=== PATIENT | female | born 1970 | race Caucasian/White ===

== ENCOUNTER 2018-05-06 12:18 | Emergency (ER) | payer SELFPAY ==
[~2018-05-06] VITALS: Ht 157.5 cm; Wt 97.5 kg
[~2018-05-06 12:18] MED LIST: HYDR30CR61 TP; METR500T PO; VALA10005 PO; VENL150C PO
--- NOTE | 2018-05-06 12:40 | PHYS DOC ---
Past Medical History Past Medical History: Arthritis, Asthma, Depression, Other Additional Past Medical Histor: RLS Past Surgical History: No Surgical History Alcohol Use: None Drug Use: None Adult General Chief Complaint Chief Complaint: INSECT BITE HPI HPI Patient is a 47 year old female who presents with bee stings. The patient does not have a known history of anaphylaxis to bee stings but she does have asthma. The patient reports that she was cutting some bushes and she estimates that at least 50 bees stung her. She came to the emergency department immediately. She does not complain wheezing or shortness of breath. She does complain of diffuse burning of the skin and some flushing of the face. Review of Systems Review of Systems Constitutional: Denies fever Eyes: Denies change in visual acuity HENT: Denies nasal congestion or sore throat Respiratory: Denies cough or shortness of breath Cardiovascular: No additional information GI: Denies abdominal pain, nausea, vomiting : Denies dysuria Musculoskeletal: Denies back pain Integument: Denies rash or skin lesions Neurologic: Denies headache Endocrine: Denies polyuria All other systems were reviewed and found to be within normal limits, except as documented in this note. Current Medications Current Medications Current Medications Medications (Trade) Dose Ordered Sig/Selam Start Time Stop Time Status Last Admin Dose Admin Diphenhydramine HCl (Benadryl) 25 mg 1X ONCE 05/06/18 12:45 05/06/18 12:46 DC 05/06/18 12:47 25 MG Methylprednisolone Sodium Succinate (SOLU-Medrol 125MG VIAL) 125 mg 1X ONCE 05/06/18 12:45 05/06/18 12:46 DC 05/06/18 12:46 125 MG Sodium Chloride 1,000 ml @ 1,000 mls/hr 1X ONCE 05/06/18 12:45 05/06/18 13:44 DC 05/06/18 12:47 1,000 MLS/HR Allergies Allergies Allergies Coded Allergies Type Severity Reaction Last Updated Verified Sulfa (Sulfonamide Antibiotics) Allergy Intermediate Hives 01/14/14 Yes Physical Exam Physical Exam Constitutional: Well developed, well nourished, no acute distress, non-toxic appearance, facial flushing HENT: Normocephalic, atraumatic, bilateral external ears normal Eyes: PERRLA, EOMI, conjunctiva normal Neck: Normal range of motion, no tenderness Cardiovascular: regular tachycardia Lungs & Thorax: Bilateral breath clear with good air movement in all leigh Abdomen: Bowel sounds normal, soft Skin: Warm, dry, no erythema, the patient does have scattered whelps about the arms and legs and some on the abdomen. Back: No tenderness Extremities: No tenderness or swelling Neurologic: Alert and oriented X 3 Psychologic: Affect normal EKG EKG [] Radiology/Procedures Radiology/Procedures [] Course & Med Decision Making Course & Med Decision Making Pertinent Labs and Imaging studies reviewed. (See chart for details) Patient is evaluated in the ER after multiple bee stings. She does have mild tachycardia. Her lungs are completely clear with no wheezes. She does have evidence of multiple bee stings although about 10-12 present at the time of the examination. Given her history of asthma, the patient is empirically treated with Solu-Medrol and Benadryl. Plan will be to observe the patient in the ER over the next couple hours. So, IV fluids are ordered. 14:20: Patient is evaluated again. Her lungs remained clear. She is feeling improved. The flushing that was present about her face is now completely resolved. She was observed in the ER for 2 hours. She had no worsening of any symptoms. Many of the bee sting wheals have resolved. Patient will be discharged home. She is encouraged to continue to use Benadryl this evening and tomorrow and return to the ER for any new or worsening symptoms. Dragon Disclaimer Dragon Disclaimer This electronic medical record was generated, in whole or in part, using a voice recognition dictation system. Departure Departure Referrals: NO PCP (PCP) SEDRICK BRISENO DO May 06, 2018 12:40
[2018-05-06] MEDS ORDERED: diphenhydrAMINE 50 MG/ML VIAL IVP ONE (12:45)
[2018-05-06] MEDS ORDERED: IV NORMAL SALINE 1000ML BAG 1,000 ML IV ONE (12:45)
[2018-05-06] MEDS ORDERED: methylPREDNISolone SOD SUCC PF 125 MG/2 ML VIAL. IV ONE (12:45)
[2018-05-06 13:53] VITALS: BP 186/86
== END 2018-05-06 14:51 | disposition home or self-care (01) ==
LOC: ER 12:18
DX: T63.441A Toxic effect of venom of bees, accidental (unintentional), initial encounter (principal); R00.0 Tachycardia, unspecified; M19.90 Unspecified osteoarthritis, unspecified site; J45.909 Unspecified asthma, uncomplicated; F32.9 Major depressive disorder, single episode, unspecified; Z88.2 Allergy status to sulfonamides; Y92.89 Other specified places as the place of occurrence of the external cause
CPT/HCPCS: 96374; 96375; 99284; J1200; J2930; J7030

== ENCOUNTER 2020-08-01 19:16 | Observation (INO) | payer OTHER ==
[~2020-08-01] VITALS: Ht 160 cm; Wt 129.0 kg
[2020-08-01] MEDS ORDERED: GLUCAGON,HUMAN RECOMBINANT 1 MG/ML VIAL. IV ONE (20:30)
--- NOTE | 2020-08-01 20:30 | PHYS DOC ---
Past Medical History Past Medical History: Anxiety, Depression, High Cholesterol Additional Past Medical Histor: RLS Past Surgical History: Tubal ligation Smoking Status: Never Smoker Alcohol Use: None Drug Use: None General Adult EDM: Chief Complaint: DIFFICULTY SWALLOWING HPI: HPI: Patient is a 50 year old female who presents with difficulty swallowing after eating chicken and rice at 1800. This has occurred before. The first time was about 6 years ago and she came to the ED. Pt states she has had dentures for about 10 years and thinks she is not chewing her food enough. Pt admits burning pain in her sternum. Pt can't keep liquid down and vomits up anything she drinks. Pt denies any progressive dysphasia. Pt denies ever having an esophageal dilation. Review of Systems: Review of Systems: Constitutional: Denies fever or chills Eyes: Denies redness or eye pain HENT: Denies nasal congestion or sore throat Respiratory: Denies cough or shortness of breath Cardiovascular: Denies palpitations; reports esophageal foreign body sensation GI: Reports abdominal pain and vomiting : Denies dysuria or hematuria Musculoskeletal: Denies back pain or joint pain Integument: Denies rash or skin lesions Neurologic: Denies headache, focal weakness or sensory changes Complete systems were reviewed and found to be within normal limits, except as documented in this note. Current Medications: Current Medications Medications (Trade) Dose Ordered Sig/Selam Start Time Stop Time Status Last Admin Dose Admin Glucagon (Glucagen) 1 mg 1X ONCE 08/01/20 20:30 08/01/20 20:31 Allergies: Allergies: Allergies Coded Allergies Type Severity Reaction Last Updated Verified Sulfa (Sulfonamide Antibiotics) Allergy Intermediate Hives 01/14/14 Yes Physical Exam: PE: Constitutional: Well developed, well nourished, no acute distress, non-toxic appearance HENT: Normocephalic, atraumatic, absent upper dentures , no stridor Eyes: Conjunctiva normal, no discharge Neck: Normal range of motion, no tenderness, supple Lungs & Thorax: No respiratory distress, equal chest rise and fall Abdomen: Soft, no tenderness, bsx4 Skin: Warm, dry, no erythema, no rash Extremities: No tenderness, ROM intact, no edema Neurologic: Alert and oriented X 3, normal motor function, normal sensory function, no focal deficits noted Psychologic: Affect normal, judgment normal Current Patient Data: Vital Signs: Vital Signs Date Time Temp Pulse Resp B/P (MAP) Pulse Ox O2 Delivery O2 Flow Rate FiO2 08/01/20 19:45 98.6 92 18 176/81 (112) 97 Room Air 98.6 EKG: EKG: [] Radiology/Procedures: Radiology/Procedures: PROCEDURE: CHEST PA & LATERAL Chest, PA and Lateral: Technique: PA and lateral views of the chest were obtained. History: food bolus. Comparison: None. Findings: The heart and pulmonary vasculature appear within normal limits. The lungs are clear. The pleural margins are clear. Obvious radiopaque foreign body is not evident. Impression: No acute chest process is seen. Electronically signed by: Shay Clemons MD (08/01/2020 9:03 PM) [id number] Course & Med Decision Making: Course & Med Decision Making Pertinent Labs and Imaging studies reviewed. (See chart for details) 50 yo female pt presents with difficulty swallowing chicken and rice. Pt feels l araceli the food is stuck in her esophagus. This has has happened several times before but normally she can get the food down with water or vomiting. CXR ordered to rule out the pt swallowing a chicken bone. Trialled glucagon and effervesint granules without resolution. Discussed case with Dr. Velasquez (GI) regarding who requests admit to hospitalist and rapid covid testing. Rapid COVID testing negative. Patient requiring admission for further evaluation and treatment. Discussed with Dr. Aguero (hospitalist) who is in agreement with admission. Discussed findings and plan with patient, who acknowledges understanding and agreement. Dragon Disclaimer: Jacob Disclaimer: This electronic medical record was generated, in whole or in part, using a voice recognition dictation system. Departure Departure Impression: Primary Impression: Esophageal foreign body Qualified Codes: T18.108A - Unspecified foreign body in esophagus causing other injury, initial encounter Disposition: ADMITTED INPT THIS HOSP Admitting Physician: RANDALL (More) Condition: STABLE Referrals: SKIP YEE MD (PCP) BETY ABBOTT DO Aug 01, 2020 20:30
[2020-08-01] MEDS ORDERED: SIMETHICONE/SOD BICARB/CITRIC ACID PACKET. PO ONE (20:45)
--- NOTE | 2020-08-01 21:06 | RAD ---
Chest, PA and Lateral: Technique: PA and lateral views of the chest were obtained. History: food bolus. Comparison: None. Findings: The heart and pulmonary vasculature appear within normal limits. The lungs are clear. The pleural margins are clear. Obvious radiopaque foreign body is not evident. Impression: No acute chest process is seen. Electronically signed by: Shay Clemons MD (08/01/2020 9:03 PM) [id number]
[2020-08-01] MEDS ORDERED: IV NORMAL SALINE 1000ML BAG 1,000 ML IV ONE (22:45)
[2020-08-01] MEDS ORDERED: ONDANSETRON PF 4 MG/2 ML VIAL. IV PRN (22:45)
[2020-08-01] MEDS: fentaNYL PF VIAL 100 MCG/2 ML VIAL IV PRN (22:55)
[2020-08-02 00:30] VITALS: BP 147/79
[2020-08-02 02:41] VITALS: BP 136/66
[2020-08-02] MEDS: fentaNYL PF VIAL 100 MCG/2 ML VIAL IV PRN (03:01)
[2020-08-02] MEDS ORDERED: IV NORMAL SALINE 1000ML BAG 1,000 ML IV SCH (06:15)
[2020-08-02] MEDS ORDERED: ONDANSETRON PF 4 MG/2 ML VIAL. IVP PRN (06:15)
[2020-08-02 07:00] VITALS: BP 119/59
--- NOTE | 2020-08-02 08:09 | PDOC1 ---
History and Physical Date of Service: DOS: DATE: 08/02/20 TIME: 08:06 Chief Complaint: Chief Complain: Difficulty swallowing History of Present Illness: HPI: 50 year old female who presents with difficulty swallowing after eating chicken and rice at 1800. This has occurred before. The first time was about 6 years ago and she came to the ED. Pt states she has had dentures for about 10 years and t hinks she is not chewing her food enough. Pt admits burning pain in her sternum. Pt can't keep liquid down and vomits up anything she drinks. Pt denies any progressive dysphasia. Pt denies ever having an esophageal dilation. Past Medical/Surgical History: PMH/PSH: Past Medical History: Anxiety, Depression, High Cholesterol, RLS Past Surgical History: Tubal ligation Allergies: Allergies: Coded Allergies: Sulfa (Sulfonamide Antibiotics) (Verified Allergy, Intermediate, Hives, 08/02/20) Family History: Family History: Reviewed and none reported Social History: Social History: Smoking Status: Never Smoker Alcohol Use: None Drug Use: None Current Medications: Current Medications Current Medications Glucagon (Glucagen) 1 mg 1X ONCE IV Last administered on 08/01/20at 20:40; Start 08/01/20 at 20:30; Stop 08/01/20 at 20:31; Status DC Simethicone/ Sodium Bicarb/ Citric Ac (E-Z-Gas) 1 packet 1X ONCE PO Last administered on 08/01/20at 20:45; Start 08/01/20 at 20:45; Stop 08/01/20 at 20:51; Status DC Sodium Chloride 1,000 ml @ 1,000 mls/hr 1X ONCE IV Last administered on 08/01/20at 22:54; Start 08/01/20 at 22:45; Stop 08/01/20 at 23:44; Status DC Ondansetron HCl (Zofran) 4 mg PRN Q8HRS PRN IV NAUSEA/VOMITING; Start 08/01/20 at 22:45; Stop 08/02/20 at 06:10; Status DC Fentanyl Citrate (Fentanyl 2ml Vial) 50 mcg PRN Q2HR PRN IV PAIN Last administered on 08/02/20at 03:01; Start 08/01/20 at 22:45; Stop 08/02/20 at 06:06; Status DC Fentanyl Citrate (Fentanyl 2ml Vial) 50 mcg PRN Q2HR PRN IVP PAIN; Start 08/02/20 at 06:15 Ondansetron HCl (Zofran) 4 mg PRN Q6HRS PRN IVP NAUSEA/VOMITING Last administe red on 08/02/20at 06:24; Start 08/02/20 at 06:15 Sodium Chloride 1,000 ml @ 75 mls/hr [id number] IV Last administered on 0at 06:15; Start 08/02/20 at 06:15 Active Scripts Active Anusol-Hc (Hydrocortisone) 30 Gm Cream..g. 1 Randy TP BID Flagyl (Metronidazole) 500 Mg Tablet 1 Tab PO BID Valtrex (Valacyclovir Hcl) 1,000 Mg Tablet 1 Tab PO BID Reported Effexor Xr (Venlafaxine Hcl) 150 Mg Cap.er.24h 150 Mg PO ROS: Review of Systems Review of System REVIEW OF SYSTEMS: GENERAL: Denies weakness SKIN: No bruising, hair changes or rashes. EYES: No blurred, double or loss of vision. NOSE AND THROAT: No history of nosebleeds, hoarseness or sore throat. HEART: No history of palpitations, chest pain or shortness of breath on exertion. LUNGS: Denies cough, hemoptysis, wheezing or shortness of breath. GASTROINTESTINAL: Denies changes in appetite, nausea, vomiting, diarrhea or constipation. GENITOURINARY: No history of frequency, urgency, hesitancy or nocturia. NEUROLOGIC: Denies history of numbness, tingling, or tremor. PSYCHIATRIC: No history of panic, anxiety or depression. ENDOCRINE: No history of heat or cold intolerance, polyuria or polydipsia. EXTREMITIES: Denies joint pain, pain on walking or stiffness. Physical Exam: Vital Signs: Vital Signs Date Time Temp Pulse Resp B/P (MAP) Pulse Ox O2 Delivery O2 Flow Rate FiO2 08/02/20 07:34 Room Air 08/02/20 07:00 99.2 85 18 119/59 (79) 94 99.2 Physcial Exam: GEN: No apparent distress. Alert and oriented HEENT: Normal cephalic, atraumatic, external auditory canals are patent EYES: Extraocular muscles are intact, pupil are equally round and reactive to light and accommodation MUSCULOSKELETAL: Well developed , well nourished, good range of motion ENDOCRINE: No thyromegaly was palpated LYMPHATICS: No cervical chain or axillary nodes were noted HEMATOPOIETIC: No bruising NECK: Supple, no JVD, no thyromegaly was noted LUNGS: Clear to auscultation in all lung leigh without rhonchi or wheezing HEART: RRR, S!, S2 present. Peripheral pulses intact, no obvious murmurs noted ABDOMEN: Soft, nontender. Positive bowel sounds, no organomegaly, normal bowel sounds EXTREMITIES: Without clubbing, cyanosis, or edema. Pedal pulses intact. Negative Homans sign NEUROLOGIC: Normal speech and tone. A&O x 3, moves all extremities, no obvious focal deficits PSYCHIATRIC: Normal affect, normal mood. Stable SKIN: No ulcerations or rashes, good skin turgor, no jaundice VASCULAR: Good capillary refill, neurovascular bundle appears to be intact Labs: Labs: Laboratory Tests Test 08/01/20 23:00 SARS-CoV-2 Antigen (Rapid) Negative (NEGATIVE) Laboratory Tests Test 08/01/20 23:00 SARS-CoV-2 Antigen (Rapid) Negative (NEGATIVE) Images: Images Impression: No acute chest process is seen. Assessment/Plan Assessment/Plan Acute dysphagia due to esophageal dysmotility versus food bolus impaction History of depression, anxiety Admit to medicine for further management GI consult for EGD N.p.o. Speech evaluation Ambulation for DVT prophylaxis Protonix GI prophylaxis N.p.o. for now Full code Discussed with RN and SW Disposition pending EGD Surrogate decision maker is the Noe Aceves Justifications for Admission Other Justification OPAL MCCARTHY MD Aug 02, 2020 08:09
[2020-08-02] MEDS: fentaNYL PF VIAL 100 MCG/2 ML VIAL IVP PRN ×2 (09:53→17:20)
[2020-08-02] MEDS ORDERED: PANTOPRAZOLE IV PUSH 40 MG VIAL. IVP SCH (10:00)
--- NOTE | 2020-08-02 10:00 | PDOC2 ---
GI CONSULT Date of Service: DATE: 08/02/20 TIME: 09:48 Reason For Consult: food bolus HPI: HPI: 50 y/o female admitted last night through the ER. Some shredded chicken got stuck in the middle of her throat last evening around 5:00. Thinks related to poor dentition and not chewing well - just got insurance, has top dentures and waiting to get remaining teeth pulled on bottom. Rice and meats intermittently get stuck - probably a couple times a month and has occurred probably for 10 years. Usually coughs up or passes with water. Never has heartburn or reflux but has had some this morning. Also says throat is sore from vomiting ("phlegm and saliva" - not tolerating own secretions) and abdomen is sore from retching. Zofran really helps. Typically has bloating after eating. No diarrhea, constipation, weight loss, or melena. Has a h/o external hemorrhoids (since daughter was born 25 years ago) which rarely bleed (bright red blood on the toilet tissue) if passes a hard stool. No previous EGD or colonoscopy. No GB, liver, pancreas, or PUD history. No routine use of NSAIDs. PMH: PMH: asthma, depression, dentures tubal ligation FH: Family History: No pertinent hx (denies GI cancers) Social History: Smoke: No ALCOHOL: none Drugs: None ROS: GEN: Denies fevers, chills, sweats HEENT: +sore throat CV: Denies chest pain RESP: Denies shortness of air, cough GI: Per HPI : Denies hematuria, dysuria ENDO: Denies weight changes NEURO: Denies confusion, dizziness MSK: Denies weakness, joint pain/swelling SKIN: Denies jaundice, pruritus Vitals: Vitals: Vital Signs Date Time Temp Pulse Resp B/P (MAP) Pulse Ox O2 Delivery O2 Flow Rate FiO2 08/02/20 07:34 Room Air 08/02/20 07:00 99.2 85 18 119/59 (79) 94 99.2 Labs: Labs: Laboratory Tests Test 08/01/20 23:00 SARS-CoV-2 Antigen (Rapid) Negative (NEGATIVE) Allergies: Coded Allergies: Sulfa (Sulfonamide Antibiotics) (Verified Allergy, Intermediate, Hives, 01/14/14) Medications: Current Medications Medications (Trade) Dose Ordered Sig/Selam Route PRN Reason Start Time Stop Time Status Last Admin Dose Admin Glucagon (Glucagen) 1 mg 1X ONCE IV 08/01/20 20:30 08/01/20 20:31 DC 08/01/20 20:40 Simethicone/ Sodium Bicarb/ Citric Ac (E-Z-Gas) 1 packet 1X ONCE PO 08/01/20 20:45 08/01/20 20:51 DC 08/01/20 20:45 Sodium Chloride 1,000 ml @ 1,000 mls/hr 1X ONCE IV 08/01/20 22:45 08/01/20 23:44 DC 08/01/20 22:54 Fentanyl Citrate (Fentanyl 2ml Vial) 50 mcg PRN Q2HR PRN IV PAIN 08/01/20 22:45 08/02/20 06:06 DC 08/02/20 03:01 Ondansetron HCl (Zofran) 4 mg PRN Q6HRS PRN IVP NAUSEA/VOMITING 08/02/20 06:15 08/02/20 06:24 Sodium Chloride 1,000 ml @ 75 mls/hr [id number] IV 08/02/20 06:15 08/02/20 06:15 Imaging: Imaging: CXR Impression: No acute chest process is seen. PE: GEN: NAD HEENT: Atraumatic, PERRL LUNGS: CTAB HEART: RRR ABD: NABS, S/ND/NT EXTREMITY: No edema SKIN: No rashes, no jaundice NEURO/PSYCH: A & O 3 A/P: A/P: Food bolus - long history of rice and meat getting stuck; she attributes to poor dentition Post-prandial bloating CRC screen - none Rare hematochezia - sounds like hemorrhoidal-type bleeding Rapid COVID-19 negative 08/01 -- Will plan for EGD this afternoon for disimpaction. ?GERD Needs outpt screening colonoscopy - our office will contact to schedule. ERNESTO MICHELLE Aug 02, 2020 10:00
--- NOTE | 2020-08-02 10:25 | NUR ---
SW following. Discussed with RN, pt from home, room air, NPO, rapid COVID-19 negative. Pt having an EGD today. RN anticipates pt may be able to discharge home after procedure. RN advised no SW needs at this time. SW will continue to follow.
[2020-08-02 10:37] VITALS: BP 143/75
[2020-08-02] MEDS ORDERED: IV RINGERS,LACTATED 1000ML 1,000 ML IV SCH (14:00)
[2020-08-02] MEDS ORDERED: IPRATRPIUM/ALBUTEROL 0.5/2.5MG 3 ML NEBU. NEB ONE (14:00)
[2020-08-02] MEDS ORDERED: PROPOFOL 10 MG/ML (20ML) VIAL. IV ONE (14:40)
--- NOTE | 2020-08-02 15:10 | PDOC4 ---
PROCEDURE Procedure EGD Indication: food impaction Meds: per anesthesia Findings: E--Impacted food bolus, grossly chicken, distally. Gently pushed into stomach. No definite stricture seen given trauma from food. G--Normal D--Normal to second portion. Keysha. well. IMP: Food impaction, resolved. REC: OK to go home. PPI for 2 weeks. Screening colonoscopy at some point; would repeat EGD then also to better gauge any reflux/stricture. Soft diet. BETY OMREAU MD Aug 02, 2020 15:10
[2020-08-02 15:45] VITALS: BP 137/56
[2020-08-02] MEDS ORDERED: OMEP20TA63 PO (16:57)
--- NOTE | 2020-08-02 18:05 | NUR ---
PT DISCHARGED HOME WITH SELF CARE. DISCHARGE INSTRUCTIONS AND PRESCRIPTIONS DISCUSSED. PT VERBALIZED UNDERSTANDING. IV REMOVED. PT DRESSED AND PACKED BELONGINGS HERSELF. PT AMBULATED TO ED ENTRANCE WITH REPAIR DEPARTMENT MANAGER AND WAS SECURED IN CAR WITH SON.
--- NOTE | 2020-08-09 13:35 | NUR ---
IV Stop times for NaCl started on 08/01 at 22:54--end time 23:54 Start time for NaCl started on 08/02 at 06:15--end time 16:45
== END 2020-08-02 18:08 | disposition home or self-care (01) ==
LOC: ER 19:16 → INTOOBSV 23:57 → 4 NORTH 23:57
PROVIDERS: ADMIT Internal Medicine; ATTEND Internal Medicine
DX: T18.108A Unspecified foreign body in esophagus causing other injury, initial encounter (principal); Z20.828 Contact with and (suspected) exposure to other viral communicable diseases; R13.10 Dysphagia, unspecified; F32.9 Major depressive disorder, single episode, unspecified; F41.9 Anxiety disorder, unspecified; E78.00 Pure hypercholesterolemia, unspecified; G25.81 Restless legs syndrome; J45.909 Unspecified asthma, uncomplicated; K21.9 Gastro-esophageal reflux disease without esophagitis; Z98.51 Tubal ligation status
CPT/HCPCS: 43247; 71046; 87426; 94640; 96361; 96374; 96375; 96376; 99284; C9113; G0378; J1610; J2405; J2704; J3010; J7030; U0003; G0379; 99285-25

== ENCOUNTER 2021-06-30 07:21 | Emergency (ER) | payer OTHER ==
[~2021-06-30] VITALS: Ht 162.6 cm; Wt 121.0 kg
[~2021-06-30 07:21] MED LIST changes: +OMEP20TA63 PO
--- NOTE | 2021-06-30 08:10 | PHYS DOC ---
Past Medical History Past Medical History: Anxiety, Depression, High Cholesterol Additional Past Medical Histor: RLS Past Surgical History: Tubal ligation Smoking Status: Never Smoker Alcohol Use: None Drug Use: None General Adult EDM: Chief Complaint: NAUSEA/VOMITING/DIARRHEA HPI: HPI: Patient is a 50-year-old female presenting for multiple symptoms. Onset was yesterday without any known inciting event, trauma, ingestion, recent travel or sick contacts. Nothing known makes better or worse. Denies any chest pain or ripping or tearing sensation in chest but does admit generalized body aches worse in proximal arms and thighs. She has not taken anything in attempt to alleviate her symptoms. States she has had some generalized nausea, a mild nonproductive cough, and urinary symptoms since symptom onset. Reports she has history of anxiety/depression for which she is on medication, no other concerning comorbid conditions. 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 Also admits she is vaccinated against COVID-19 Review of Systems: Review of Systems: Fourteen body systems of review of systems have been reviewed. See HPI for pertinent positives and negative responses, other chambers all other systems are negative, non-pertinent or non-contributory Heart Score: C/O Chest Pain: No HEART Score for Chest Pain: HEART Score for Chest Pain Response (Comments) Value History Slighlty/Non-Suspicious 0 ECG Normal 0 Age >45 - < 65 1 Risk Factors 1 or 2 Risk Factors 1 Troponin < Normal Limit 0 Total 2 Risk Factors: Risk Factors: DM, Current or recent (<one month) smoker, HTN, HLP, family history of CAD, obesity. Risk Scores: Score 0 - 3: 2.5% MACE over next 6 weeks - Discharge Home Score 4 - 6: 20.3% MACE over next 6 weeks - Admit for Clinical Observation Score 7 - 10: 72.7% MACE over next 6 weeks - Early Invasive Strategies Current Medications: Current Medications Medications (Trade) Dose Ordered Sig/Selam Start Time Stop Time Status Last Admin Dose Admin Acetaminophen (Tylenol) 1,000 mg 1X ONCE 06/30/21 08:15 06/30/21 08:16 UNV Sodium Chloride 1,000 ml @ 1,000 mls/hr 1X ONCE 06/30/21 08:15 06/30/21 09:14 UNV Allergies: Allergies: Allergies Coded Allergies Type Severity Reaction Last Updated Verified Sulfa (Sulfonamide Antibiotics) Allergy Intermediate Hives 08/02/20 Yes Physical Exam: PE: Constitutional: Well developed, well nourished, no acute distress, non-toxic appearance. HENT: Normocephalic, atraumatic, bilateral external ears normal, oropharynx moist, no oral exudates, nose normal. Eyes: PERRLA, EOMI, conjunctiva normal, no discharge. Neck: Normal range of motion, no tenderness, supple, no stridor. Cardiovascular: Heart rate regular, sinus rhythm, no murmurs rubs or gallops Lungs & Thorax: Bilateral breath sounds clear to auscultation Abdomen: Bowel sounds normal, soft, no tenderness, no masses, no pulsatile masses. Nonsurgical abdomen, no peritoneal signs Skin: Warm, dry, no erythema, no rash. Back: No tenderness, no CVA tenderness. Extremities: No tenderness, no cyanosis, no clubbing, ROM intact, no edema. Neurologic: Alert and oriented X 3, grossly normal motor & sensory function, no focal deficits noted. Psychologic: Affect normal, judgement normal, mood normal. Current Patient Data: Labs: Laboratory Tests Test 06/30/21 08:07 06/30/21 09:15 06/30/21 09:27 White Blood Count 17.9 x10^3/uL Red Blood Count 5.27 x10^6/uL Hemoglobin 13.8 g/dL Hematocrit 41.8 % Mean Corpuscular Volume 79 fL Mean Corpuscular Hemoglobin 26 pg Mean Corpuscular Hemoglobin Concent 33 g/dL Red Cell Distribution Width 15.5 % Platelet Count 216 x10^3/uL Neutrophils (%) (Auto) 78 % Lymphocytes (%) (Auto) 12 % Monocytes (%) (Auto) 10 % Eosinophils (%) (Auto) 0 % Basophils (%) (Auto) 1 % Neutrophils # (Auto) 14.0 x10^3/uL Lymphocytes # (Auto) 2.1 x10^3/uL Monocytes # (Auto) 1.7 x10^3/uL Eosinophils # (Auto) 0.0 x10^3/uL Basophils # (Auto) 0.1 x10^3/uL Sodium Level 135 mmol/L Potassium Level 3.9 mmol/L Chloride Level 100 mmol/L Carbon Dioxide Level 30 mmol/L Anion Gap 5 Blood Urea Nitrogen 9 mg/dL Creatinine 0.9 mg/dL Estimated GFR (Cockcroft-Gault) 65.8 BUN/Creatinine Ratio 10 Glucose Level 112 mg/dL Lactic Acid Level 0.9 mmol/L Calcium Level 8.0 mg/dL Total Bilirubin 1.0 mg/dL Aspartate Amino Transf (AST/SGOT) 18 U/L Alanine Aminotransferase (ALT/SGPT) 22 U/L Alkaline Phosphatase 73 U/L Total Protein 7.0 g/dL Albumin 3.0 g/dL Albumin/Globulin Ratio 0.8 SARS-CoV-2 Antigen (Rapid) Negative Urine Collection Type Unknown Urine Color Yellow Urine Clarity Clear Urine pH 7.5 Urine Specific [place] 1.020 Urine Protein Negative mg/dL Urine Glucose (UA) Negative mg/dL Urine Ketones (Stick) Negative mg/dL Urine Blood Negative Urine Nitrite Negative Urine Bilirubin Negative Urine Urobilinogen Dipstick 1.0 mg/dL Urine Leukocyte Esterase Negative Urine RBC 0 /HPF Urine WBC 1-4 /HPF Urine Squamous Epithelial Cells Many /LPF Urine Bacteria Few /HPF Urine Mucus Mod /LPF Bedside Urine HCG, Qualitative Hcg negative Current Medications Medications (Trade) Dose Ordered Sig/Selam Route PRN Reason Start Time Stop Time Status Last Admin Dose Admin Sodium Chloride 1,000 ml @ 1,000 mls/hr 1X ONCE IV 06/30/21 08:15 06/30/21 09:14 DC 06/30/21 08:12 Acetaminophen (Tylenol) 1,000 mg 1X ONCE PO 06/30/21 08:15 06/30/21 08:16 DC 06/30/21 08:24 Azithromycin (Zithromax) 500 mg 1X ONCE PO 06/30/21 10:15 06/30/21 10:21 DC Amoxicillin (Amoxil) 1,000 mg 1X ONCE PO 06/30/21 10:15 06/30/21 10:21 DC Vital Signs: Vital Signs Date Time Temp Pulse Resp B/P (MAP) Pulse Ox O2 Delivery O2 Flow Rate FiO2 06/30/21 07:39 101.9 119 18 142/73 (96) 97 Room Air 101.9 EKG: EKG: EKG ordered and interpreted by myself 0907 hrs. as sinus tachycardia at 109 bpm, unremarkable intervals, no axis deviation, no obvious ischemic findings, no STEMI Radiology/Procedures: Radiology/Procedures: Single view of the chest. 06/30/2021 8:12 AM Indication: Reason: fever / Spl. Instructions: / History: Comparison: Chest radiograph August 01, 2020 Findings: There is subtle right basilar infiltrate concerning for pneumonia. No pneumothorax or pleural effusion is seen. Heart size is normal. No acute osseous changes are identified. IMPRESSION: Subtle right basilar infiltrate concerning for pneumonia. Recommend follow-up two-view chest radiograph to ensure resolution. Electronically signed by: Sarwat Anthony MD (06/30/2021 8:41 AM) [id number] Course & Med Decision Making: Course & Med Decision Making ABCs unremarkable HPI physical exam and comprehensive ER work-up concerning for right lower lobe pneumonia and technically septic per criteria Patient symptoms improved with ER interventions. Discussion was had with patient with full capacity about hospitalization for continued inpatient medical management but she deferred She is tolerating p.o. intake, cites good outpatient primary care in family support and wishes to return home for attempts of outpatient treatment of condition Strict return precautions were discussed with good understanding verbalized by patient. All questions and concerns addressed prior to ER departure Dragon Disclaimer: Jacob Disclaimer: This electronic medical record was generated, in whole or in part, using a voice recognition dictation system. Departure Departure Impression: Primary Impression: RLL pneumonia Disposition: 01 HOME / SELF CARE / HOMELESS Condition: STABLE Referrals: SKIP YEE MD (PCP) Patient Instructions: Pneumonia, Adult Additional Instructions: As discussed prior to ER departure, you were diagnosed with a right lower lobe pneumonia of the lungs. You met sepsis criteria given fast heart rate, elevated white blood cell count and source of infection being your lungs. Your symptoms improved with IV fluid rehydration and administration of Tylenol. I discussed and recommended hospitalization for this condition but you deferred in preference for outpatient management. As such, you have been prescribed azithromycin and amoxicillin which should cover normal and also atypical causes of pneumonia. Please take these prescribed medications as scheduled to completion. Immediately after ER departure, please call your primary care physician to review ER visit today and need for close outpatient follow-up to ensure symptomatic resolution of symptoms. If any concerning signs or symptoms present prior to outpatient follow-up please do not hesitate to come back for repeat evaluation. It was a pleasure to take care of you and I wish you the best going forward Scripts Amoxicillin (AMOXICILLIN) 500 Mg Tablet 2 TAB PO TID for 5 Days, #30 TAB Prov: JUSTIN GUTIÉRREZ DO 06/30/21 Azithromycin (AZITHROMYCIN TABLET) 250 Mg Tablet 250 MG PO DAILY for ANTI-BIOTIC for 4 Days, #4 TAB 0 Refills Prov: JUSTIN GUTIÉRREZ DO 06/30/21 JUSTIN GUTIÉRREZ DO Jun 30, 2021 08:10
[2021-06-30] MEDS ORDERED: IV NORMAL SALINE 1000ML BAG 1,000 ML IV ONE (08:15)
[2021-06-30] MEDS ORDERED: ACETAMINOPHEN 500 MG TABLET PO ONE (08:15)
[2021-06-30 08:22] LABS: BASO # 0.1 x10^3/uL (0.0-0.2); BASO % 1 % (0-3); EOS % 0 % (0-3); HEMATOCRIT 41.8 % (36.0-47.0); HEMOGLOBIN 13.8 g/dL (12.0-15.5); LYMPH # 2.1 x10^3/uL (1.0-4.8); LYMPH % 12 % (24-48); MEAN CORPUSCULAR HEMOGLOBIN 26 pg (25-35); MEAN CORPUSCULAR HGB CONC 33 g/dL (31-37); MEAN CORPUSCULAR VOLUME 79 fL (79-100); MONO # 1.7 x10^3/uL (0.0-1.1); MONO % 10 % (0-9); NEUT % 78 % (31-73); PLATELET COUNT 216 x10^3/uL (140-400); RED BLOOD COUNT 5.27 x10^6/uL (3.50-5.40); RED CELL DISTRIBUTION WIDTH 15.5 % (11.5-14.5); WHITE BLOOD COUNT 17.9 x10^3/uL (4.0-11.0)
[2021-06-30 08:38] LABS: CREATININE 0.9 mg/dL (0.6-1.0); GFR 65.8; POTASSIUM 3.9 mmol/L (3.5-5.1)
[2021-06-30 08:43] LABS: ALBUMIN/GLOBULIN RATIO 0.8 (1.0-1.7)
--- NOTE | 2021-06-30 08:44 | RAD ---
Single view of the chest. 06/30/2021 8:12 AM Indication: Reason: fever / Spl. Instructions: / History: Comparison: Chest radiograph August 01, 2020 Findings: There is subtle right basilar infiltrate concerning for pneumonia. No pneumothorax or pleur al effusion is seen. Heart size is normal. No acute osseous changes are identified. IMPRESSION: Subtle right basilar infiltrate concerning for pneumonia. Recommend follow-up two-view ch est radiograph to ensure resolution. Electronically signed by: Sarwat Anthony MD (06/30/2021 8:41 AM) [id number]
--- NOTE | 2021-06-30 09:14 | EKG ---
[facility] [address] [place] [address] Test Date: 2021-06-30 Test Time: 09:04:29 Pat Name: PUSHPA TAN Department: Room: Gender: F [employer]visor [employer]: : 1970 Requested By: JUSTIN GUTIÉRREZ Order Number: [id number] Reading MD: Benjamin Rice Measurements Intervals [place] Rate: 109 P: 38 DC: 138 QRS: 57 QRSD: 86 T: 38 QT: 318 QTc: 430 Interpretive Statements SINUS TACHYCARDIA Electronically Signed On 07-01-2021 13:31:39 CDT by Benjamin Rice
[2021-06-30 09:35] LABS: BILIRUBIN,URINE NEGATIVE (NEG); CLARITY,URINE CLEAR; COLOR,URINE YELLOW; NITRITE,URINE NEGATIVE (NEG); PH,URINE 7.5 (<5.0-8.0); PROTEIN,URINE NEGATIVE (NEG-TRACE)
[2021-06-30 09:50] LABS: BACTERIA,URINE FEW /HPF (0-FEW); RBC,URINE 0 /HPF (0-2)
[2021-06-30 10:00] VITALS: BP 132/65
[2021-06-30] MEDS ORDERED: AZITHROMYCIN 250 MG TABLET. PO ONE (10:15)
[2021-06-30] MEDS ORDERED: AMOXICILLIN 250 MG CAPSULE. PO ONE (10:15)
[2021-06-30] MEDS ORDERED: AZIT250T6 PO (10:29)
[2021-06-30] MEDS ORDERED: AMOX500T PO (10:29)
--- NOTE | 2021-06-30 17:02 | NUR ---
IP: Attempted to contact pt concerning covid results. No answer, left a voicemail to return the call.
--- NOTE | 2021-07-05 13:17 | NUR ---
IP: Pt returned call. Informed pt of negative covid test. Pt verbalized understanding.
== END 2021-06-30 10:52 | disposition home or self-care (01) ==
LOC: ER 07:21
DX: J18.1 Lobar pneumonia, unspecified organism (principal); F41.9 Anxiety disorder, unspecified; F32.9 Major depressive disorder, single episode, unspecified; E78.00 Pure hypercholesterolemia, unspecified; Z20.822 Contact with and (suspected) exposure to COVID-19; Z88.2 Allergy status to sulfonamides
CPT/HCPCS: 36415; 71045; 80053; 81001; 81025; 83605; 85025; 87040; 87426; 93005; 96360; 99285; J7030; U0003; U0005